=== PATIENT | male | born 1955 | race Caucasian/White ===

== ENCOUNTER 2023-07-09 10:22 | Day surgery (SDC) | payer OTHER ==
[~2023-07-09] VITALS: Ht 167.6 cm; Wt 83.0 kg
[2023-07-09] MEDS ORDERED: fentaNYL citrate 0.05 MG/ML VIAL ONE (11:36)
[2023-07-09] MEDS ORDERED: diphenhydrAMINE 50 MG/ML VIAL ONE (11:36)
[2023-07-09] MEDS ORDERED: MIDAZOLAM 5 MG/5 ML VIAL ONE (11:37)
[2023-07-09] MEDS ORDERED: LIDOCAINE 2% 100 MG/5 ML UJET TP ONE (11:37)
[2023-07-09] MEDS ORDERED: MIDAZOLAM 2 MG/2 ML VIAL IVP ONE (14:50)
[2023-07-09] MEDS ORDERED: fentaNYL citrate 0.05 MG/ML VIAL IVP ONE (14:50)
== END 2023-07-09 12:25 | disposition home or self-care (01) ==
LOC: MDS 10:22 → MMU 10:27 → MDS 12:25
PROVIDERS: ATTEND Internal Medicine Gastroenterology
DX: Z12.11 Encounter for screening for malignant neoplasm of colon (principal); D12.2 Benign neoplasm of ascending colon; E11.9 Type 2 diabetes mellitus without complications; E78.00 Pure hypercholesterolemia, unspecified; Z79.82 Long term (current) use of aspirin; Z79.899 Other long term (current) drug therapy
CPT/HCPCS: 45385; 82948; J2250; J3010; J1200